=== PATIENT | male | born 1960 | race Native Hawaiian/Other Pacific Islander ===

== ENCOUNTER 2020-10-08 08:04 | Outpatient (CLI) | payer BC, OTHER | END 2020-10-08 19:59 | disposition home or self-care (01) | LOC: INF 08:04 | PROVIDERS: ATTEND Internal Medicine | DX: Z23 Encounter for immunization (principal) | CPT/HCPCS: 96372 ==

== ENCOUNTER 2020-10-30 08:05 | Outpatient (CLI) | payer BC, OTHER | END 2020-10-30 19:20 | disposition home or self-care (01) | LOC: INF 08:05 | PROVIDERS: ATTEND Internal Medicine | DX: Z23 Encounter for immunization (principal) | CPT/HCPCS: 96372 ==